=== PATIENT | female | born 1955 | race Caucasian/White ===

== ENCOUNTER 2017-09-28 19:11 | Emergency (ER) | payer MEDICAID, OTHER ==
[~2017-09-28] VITALS: Ht 167.6 cm; Wt 99.8 kg
[~2017-09-28 19:11] MED LIST: KEPPRA500 MG ORAL; METFORMIN HCL500 M1 ORAL; METOPROLOL TART25 MG ORAL; PROPRANOLOL HCL10 MG ORAL; RAMIPRIL2.5 MG ORAL; XARELTO10 MG ORAL
[2017-09-28] MEDS ORDERED: Ipratropium 0.02% Inh Soln 2.5ml UD HHN ONE (19:45)
[2017-09-28] MEDS ORDERED: Albuterol ud Inhalation HHN ONE (19:45)
[2017-09-28] MEDS ORDERED: Nitroglycerin Subl 0.4mg tab SL PRN (19:45)
[2017-09-28 20:53] VITALS: BP 135/48
--- NOTE | 2017-09-28 21:11 | Emergency Room Report ---
History of Present Illness General Chief Complaint: Chest Pain Source: Patient, EMS Present Illness HPI 62-year-old female presents ED complaining of chest pain. Started today. Intermitted, sharp, 5/10, nonradiating. EMS states that patient was sitting outside of residential housing. Patient states she does not like her roomate. Per EMS patient is denying chest pain at that time therefore no aspirin or nitroglycerin were given. Patient denies fevers or chills. Denies cough. Denies shortness of breath. No other aggravating or relieving factors. Denies any other associated symptoms Allergies: Coded Allergies: AMOXICILLIN (Verified Allergy, Severe, Rash, 11/07/14) PENICILLINS (Verified Allergy, Severe, Rash, 11/07/14) Patient History Past Medical History: DM, HTN, CVA/TIA, seizures Pertinent Family History: none Social History: Denies: smoking, alcohol use, drug use Last Menstrual Period: n/a Now: No Immunizations: UTD Reviewed Nursing Documentation: PMH: Agreed, PSxH: Agreed Nursing Documentation-PMH Past Medical History: No History, Except For Hx Cardiac Problems: Yes - NH, TRIPLE BYPASS SURGERY Hx Hypertension: Yes Hx Diabetes: Yes Hx Cancer: No Hx Neurological Problems: Yes Hx Cerebrovascular Accident: Yes Hx Seizures: Yes Hx Epilepsy: Yes Review of Systems All Other Systems: negative except mentioned in HPI Physical Exam Vital Signs Date Time Temp Pulse Resp B/P (MAP) Pulse Ox O2 Delivery O2 Flow Rate FiO2 09/28/17 19:03 92 16 189/90 98 Room Air Sp02 EP Interpretation: reviewed, normal General Appearance: no apparent distress, alert, GCS 15, non-toxic, obese Head: normocephalic, atraumatic Eyes: bilateral eye normal inspection, bilateral eye PERRL ENT: hearing grossly normal, normal pharynx, no angioedema, normal voice Neck: full range of motion, supple/symm/no masses Respiratory: chest non-tender, lungs clear, normal breath sounds, speaking full sentences Cardiovascular #1: regular rate, rhythm, no edema Cardiovascular #2: 2+ carotid (R), 2+ carotid (L), 2+ radial (R), 2+ radial (L) , 2+ dorsalis pedis (R), 2+ dorsalis pedis (L) Gastrointestinal: normal bowel sounds, non tender, soft, non-distended, no guarding, no rebound Rectal: deferred Genitourinary: normal inspection, no CVA tenderness Musculoskeletal: back normal, gait/station normal, normal range of motion, non- tender Neurologic: alert, oriented x3, responsive, motor strength/tone normal, sensory intact, speech normal Psychiatric: judgement/insight normal, memory normal, no suicidal/homicidal ideation, anxious Reflexes: 3+ bicep (R), 3+ bicep (L), 3+ tricep (R), 3+ tricep (L), 3+ knee (R) , 3+ knee (L) Skin: normal color, no rash, warm/dry, well hydrated Lymphatic: no adenopathy Medical Decision Making Diagnostic Impression: Primary Impression: Chest pain Qualified Codes: R07.9 - Chest pain, unspecified ER Course Hospital Course 62-year-old F presents ED complaining of chest pain Differential diagnoses include: Rib fracture, NH/unstable angina, contusion, muscle strain Clinical course Patient placed on stretcher. After initial history and physical I ordered labs , EKG, chest x-ray. EKG - NSR, no acute ischemic changes interpreted by me Chest x-ray-noted cardiomegaly, no rib fracture, no pneumothorax, no acute process Patient declines labs or IV access. I explained to the patient that if she refuses blood sure IV access she will have to leave AGAINST MEDICAL ADVICE Understands the risks of leaving. Patient has competency to make her own decisions. Signed AMA form. I. I feel this is a highly complex case requiring extensive working including EKG/Rhythm strip, Xray/CT/US, Blood/urine lab work, repeat exams while in ED, and administration of strong opiates/narcotics for pain control, admission to hospital or close patient follow up. Diagnosis - chest pain patient signs out AMA EKG Diagnostic Results Rate: normal Rhythm: NSR ST Segments: no acute changes ASA given to the pt in ED: No Rhythm Strip Diag. Results EP Interpretation: yes Rhythm: NSR, no PVC's, no ectopy Chest X-Ray Diagnostic Results Chest X-Ray Diagnostic Results : Chest X-Ray Ordered: Yes # of Views/Limited/Complete: 1 View Indication: Chest Pain EP Interpretation: Yes Interpretation: no consolidation, no effusion, no pneumothorax, no acute cardiopulmonary disease, other - cardiomegaly Impression: Other - cardiomegaly Electronically Signed by: Electronically signed by Dominik Reardon MD Last Vital Signs Date Time Temp Pulse Resp B/P (MAP) Pulse Ox O2 Delivery O2 Flow Rate FiO2 09/28/17 20:53 18 135/48 99 Room Air 09/28/17 19:55 70 Status: improved Disposition: AGAINST MEDICAL ADVICE Condition: Stable Referrals: NON PHYSICIAN (PCP) DOMINIK REARDON M.D. Sep 28, 2017 21:11
--- NOTE | 2017-09-29 10:22 | Diagnostic Imaging Report ---
. Indication: Chest pain Technique: XRAY Chest 1v Comparison: 11/07/2014 Findings: Mild cardiomegaly. Evidence of prior median sternotomy and likely CABG. No focal airspace consolidation, pleural effusion or pneumothorax. No evidence of pulmonary edema. No acute osseous abnormality. Impression: No radiographic evidence of acute cardiopulmonary disease. Mild cardiomegaly.
--- NOTE | 2017-09-29 15:05 | Cardiology Report ---
APPROVED REPORT EKG Measurement Heart [id number] OR [id number] Normal sinus rhythm Left axis deviation Incomplete left bundle branch block Abnormal ECG
== END 2017-09-28 21:02 | disposition left against medical advice (07) ==
LOC: EDBD 19:11 → EMR 20:47
DX: R07.89 Other chest pain (principal); Z88.0 Allergy status to penicillin; I25.2 Old myocardial infarction; I10 Essential (primary) hypertension; E11.9 Type 2 diabetes mellitus without complications; Z86.73 Personal history of transient ischemic attack (TIA), and cerebral infarction without residual deficits; Z95.1 Presence of aortocoronary bypass graft
CPT/HCPCS: 71045; 93005; 94640; 94664; 99284